=== PATIENT | female | born 1945 | race Caucasian/White ===

== ENCOUNTER 2017-04-25 13:44 | Emergency (ER) | payer OTHER ==
[2017-04-25 13:50] VITALS: BP 118/76; PULSE 63; RESP 18; TEMP 98.8; O2SAT 94
--- NOTE | 2017-04-25 14:45 | EDPHY ---
H & P Stated Complaint: Tremors, anxiety - in withdrawel from clonazapam. Time Seen by Provider: 04/25/17 14:32 HPI/ROS: CHIEF COMPLAINT: Ran out of Klonopin HISTORY OF PRESENT ILLNESS: The patient is a 72-year-old female who comes to the emergency department complaining of Klonopin withdrawal. She takes Klonopin three times daily 0.5 mg for for the last 30 years. She got a new doctor at the [facility] who wrote her prescription for only 30 tablets instead of 90. She ran out 2 days ago but did take 1 tablet yesterday and a half tablet today that she had left over. She has been talking with the pharmacy and the clinic and they are not able to help over the holiday. She comes here complaining of shakes and anxiety. She takes Klonopin for history of panic attacks and PTSD. She is requesting a gap prescription she can follow up with her clinic doctor on Friday. REVIEW OF SYSTEMS: Constitutional: denies: chills, fever, recent illness, recent injury EENTM: denies: blurred vision, double vision, nose congestion Respiratory: denies: cough, shortness of breath Cardiac: denies: chest pain, irregular heart rate, lightheadedness, palpitations Gastrointestinal/Abdominal: denies: abdominal pain, diarrhea, nausea, vomiting, blood streaked stools Genitourinary: denies: dysuria, frequency, hematuria, pain Musculoskeletal: Tremors denies: joint pain, muscle pain Skin: denies: lesions, rash, jaundice, bruising Neurological: denies: headache, numbness, paresthesia, tingling, dizziness, weakness Hematologic/Lymphatic: denies: blood clots, easy bleeding, easy bruising Immunologic/allergic: denies: HIV/AIDS, transplant EXAM: GENERAL: Well-appearing, well-nourished and in no acute distress. HEAD: Atraumatic, normocephalic. EYES: Pupils equal round and reactive to light, extraocular movements intact, sclera anicteric, conjunctiva are normal. ENT: TMs normal, nares patent, oropharynx clear without exudates. Moist mucous membranes. NECK: Normal range of motion, supple without lymphadenopathy or JVD. LUNGS: Breath sounds clear to auscultation bilaterally and equal. No wheezes rales or rhonchi. HEART: Regular rate and rhythm without murmurs, rubs or gallops. ABDOMEN: Soft, nontender, normoactive bowel sounds. No guarding, no rebound. No masses appreciated. BACK: No CVA tenderness, no spinal tenderness, step-offs or deformities EXTREMITIES: Very mild tremors, Normal range of motion, no pitting or edema. No clubbing or cyanosis. NEUROLOGICAL: Cranial nerves II through XII grossly intact. Normal speech, normal gait. 5/5 strength, normal movement in all extremities, normal sensation PSYCH: Anxious SKIN: Warm, dry, normal turgor, no visible rashes or lesions. Source: Patient Exam Limitations: No limitations - Personal History Current Tetanus Diphtheria and Acellular Pertussis (TDAP): Yes - Medical/Surgical History Hx Asthma: No Hx Chronic Respiratory Disease: No Hx Diabetes: No Hx Cardiac Disease: No Hx Renal Disease: No Hx Cirrhosis: No Hx Alcoholism: No Hx HIV/AIDS: No Hx Splenectomy or Spleen Trauma: No Other PMH: ANXIETY. MIGRANES. HIP SURG - APR 2016. PTSD. depression,UN-NAMED AUTO IMMUNE DISORDER - Family History Significant Family History: No pertinent family hx - Social History Smoking Status: Never smoked Alcohol Use: Sober Drug Use: None Constitutional: Initial Vital Signs Temperature (C) 37.1 C 04/25/17 13:45 Heart Rate 63 04/25/17 13:45 Respiratory Rate 18 04/25/17 13:45 Blood Pressure 118/76 04/25/17 13:45 O2 Sat (%) 94 04/25/17 13:45 O2 Delivery Mode Room Air Allergies/Adverse Reactions: oxycodone Allergy (Verified 04/27/16 17:59) codeine/codeine derivatives Allergy (Mild, Uncoded 04/27/16 17:59) GI upset Home Medications: Medication Instructions Recorded clonazePAM [Klonopin (*)] 0.5 mg PO BID #7 tab 04/29/14 Citalopram [CeleXA] 30 mg PO 01/14/15 SUMAtriptan [Imitrex] 25 mg PO Q2H 01/14/15 Nuvigil 04/27/16 IMITREX 04/27/16 clonazePAM [klonoPIN (*)] 1 mg PO ONCE #2 tab 04/27/16 clonazePAM [Klonopin (*)] 0.5 mg PO TID #21 tab 04/25/17 Medical Decision Making ED Course/Re-evaluation: The patient has shown me her prescriptions. She does appear to be in mild withdrawal. I will give her a gap prescription until she can follow up with her doctor on Friday. I believe that this is reasonable. She is very honest. She is grateful and declines any further workup or testing. Differential Diagnosis: Partial list of the Differential diagnosis considered include but were not limited to; benzodiazepine withdrawal, anxiety and although unlikely based on the history and physical exam, I also considered head injury, infection, seizure. I discussed these differential diagnoses and the plan with the patient as well as the usual and expected course. The patient understands that the diagnosis is provisional and that in medicine we are not always correct and that further workup is often warranted. Usual and customary warnings were given. All of the patient's questions were answered. The patient was instructed to return to the emergency department should the symptoms at all worsen or return, otherwise to followup with the physician as we discussed. Departure - Departure Disposition: Home, Routine, Self-Care Clinical Impression: Benzodiazepine withdrawal Qualifiers: Complication of substance-induced condition: uncomplicated Qualified Code(s): F13.230 - Sedative, hypnotic or anxiolytic dependence with withdrawal, uncomplicated Condition: Fair Instructions: Anxiety (ED) Additional Instructions: Follow-up with her clinic doctor on Friday as discussed. Referrals: LU RICHARDSON [Other] - As per Instructions Prescriptions: clonazePAM [Klonopin (*)] 0.5 mg PO TID #21 tab
== END 2017-04-25 14:56 | disposition home or self-care (01) ==
DX: F13.230 Sedative, hypnotic or anxiolytic dependence with withdrawal, uncomplicated (principal)

== ENCOUNTER 2017-05-02 20:02 | Emergency (ER) | payer OTHER ==
[2017-05-02 20:10] VITALS: BP 138/77; PULSE 67; RESP 18; TEMP 98.6; O2SAT 94
--- NOTE | 2017-05-02 20:34 | EDPHY ---
H & P Time Seen by Provider: 05/02/17 20:22 HPI/ROS: CHIEF COMPLAINT: Celexa withdrawal HISTORY OF PRESENT ILLNESS: 72-year-old female with a history of anxiety and depression presents with a chief complaint of Celexa withdrawal. She has ongoing severe anxiety and depression and ran out of her Celexa and Klonopin. She called [facility] several times today as well as the pharmacy and was unable to get her prescriptions filled. She presents quite anxious and demanding. REVIEW OF SYSTEMS: Constitutional: No fever, no chills Eyes: No visual changes ENT: No sore throat Respiratory: No cough, no shortness of breath Cardiac: No chest pain Gastrointestinal: No nausea, no vomiting, no abdominal pain Genitourinary: no dysuria Musculoskeletal: No leg pain or swelling Skin: No rash Neurological: No headache, no weakness Past Medical/Surgical History: Depression Anxiety Smoking Status: Never smoked Physical Exam: General Appearance: Alert, angry and demanding Eyes: Pupils equal and round, no conjunctival pallor ENT, Mouth: Mucous membranes moist Neck: Normal inspection Respiratory: Lungs are clear to auscultation Cardiovascular: Regular rate and rhythm Gastrointestinal: Abdomen is soft and nontender Neurological: A&O, nonfocal, normal gait Skin: Warm and dry Extremities: normal inspection Psychiatric: anxious Constitutional: Initial Vital Signs Temperature (C) 37 C 05/02/17 20:08 Heart Rate 67 05/02/17 20:08 Respiratory Rate 18 05/02/17 20:08 Blood Pressure 138/77 H 05/02/17 20:08 O2 Sat (%) 94 05/02/17 20:08 O2 Delivery Mode Room Air Allergies/Adverse Reactions: oxycodone Allergy (Verified 05/02/17 20:11) codeine/codeine derivatives Allergy (Mild, Uncoded 04/27/16 17:59) GI upset Home Medications: Medication Instructions Recorded Citalopram [CeleXA] 30 mg PO 01/14/15 SUMAtriptan [Imitrex] 25 mg PO Q2H 01/14/15 Nuvigil 04/27/16 clonazePAM [Klonopin (*)] 0.5 mg PO TID #21 tab 04/25/17 Citalopram [CeleXA 20 MG] 30 mg PO DAILY #30 tab 05/02/17 clonAZEPAM [Klonopin] 0.5 mg PO BID PRN #20 tab.rapdis 05/02/17 Medical Decision Making ED Course/Re-evaluation: Prescriptions refilled for this patient. She has severe anxiety and depression , does not meet criteria for mental health hold. No suicidal or homicidal ideation. Departure - Departure Referrals: Patient,NotPresent [Primary Care Provider] - As per Instructions Prescriptions: Citalopram [CeleXA 20 MG] 30 mg PO DAILY #30 tab clonAZEPAM [Klonopin] 0.5 mg PO BID PRN #20 tab.rapdis PRN Reason: Anxiety
== END 2017-05-02 21:08 | disposition home or self-care (01) ==
LOC: EDUNIT#
DX: F41.9 Anxiety disorder, unspecified (principal); Z76.0 Encounter for issue of repeat prescription

== ENCOUNTER 2017-06-17 13:14 | Emergency (ER) | payer OTHER ==
[2017-06-17 13:54] VITALS: BP 101/74; PULSE 95; RESP 16; TEMP 98.2; O2SAT 95
== END 2017-06-17 15:04 | disposition left against medical advice (07) ==
DX: Z53.21 Procedure and treatment not carried out due to patient leaving prior to being seen by health care provider (principal)

== ENCOUNTER → 2017-08-14 | Outpatient (CLI) | payer OTHER | LOC: FIMAGING 15:29 | DX: Z12.31 Encounter for screening mammogram for malignant neoplasm of breast (principal) ==

== ENCOUNTER 2017-09-10 22:03 | Emergency (ER) | payer OTHER ==
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
[2017-09-10] MEDS ORDERED: clonazePAM 0.5 MG TAB PO ONE (22:49)
[2017-09-10 22:57] VITALS: BP 132/77
== END 2017-09-10 22:56 | disposition home or self-care (01) ==
DX: F41.1 Generalized anxiety disorder (principal)

== ENCOUNTER 2017-09-18 15:16 | Inpatient (IN) | payer OTHER, MEDICAID ==
--- NOTE | 2017-09-18 15:50 | EDPHY ---
H & P Stated Complaint: [facility] fall - Personal History Current Tetanus Diphtheria and Acellular Pertussis (TDAP): Unsure - Medical/Surgical History Hx Asthma: No Hx Chronic Respiratory Disease: No Hx Diabetes: No Hx Cardiac Disease: No Hx Renal Disease: No Hx Cirrhosis: No Hx Alcoholism: No Hx HIV/AIDS: No Hx Splenectomy or Spleen Trauma: No Other PMH: ANXIETY. MIGRANES. HIP SURG - APR 2016. PTSD. depression,UN-NAMED AUTO IMMUNE DISORDER, tremor - Social History Smoking Status: Never smoked Time Seen by Provider: 09/18/17 15:35 HPI/ROS: CHIEF COMPLAINT: "My arm hurts" HISTORY OF PRESENT ILLNESS: 72-year-old female no anticoagulant use erect by ambulance complaining of left humerus and shoulder pain. Describes being in her kitchen, having baseline of imbalance issues, twisted and tripped over her dog landing on her left shoulder. Patient relates that since being tapered down on her benzodiazepines she has been experiencing increasing tremor. No seizure. No head injury. No prolonged periods of mobility. No chest pain. No dyspnea. No abdominal pain. No nausea or vomiting. No antecedent symptoms.. No midline C-spine pain. No peripheral paresthesia, weakness, numbness. No alcohol or drug use. REVIEW OF SYSTEMS: A ten point review of systems was performed and is negative with the exception of the items mentioned in the HPI PAST MEDICAL/SURGICAL HISTORY: Anxiety disorder. Benzodiazepine dependence. no relevant medical/surgical history SOCIAL HISTORY: denies alcohol use at time of incident PHYSICAL EXAM 1) GENERAL: Well-developed, well-nourished, alert and oriented. Answering questions appropriately. 2) HEAD: Normocephalic, atraumatic 3) HEENT: Pupils equal, round, reactive to light bilaterally. Negative Horners. Nasopharynx, oropharynx, clear. No deformity or angulation of nose. No septal hematoma. No rhinorrhea. No oral trauma. Ears bilaterally with normal tympanic membranes. No hemotympanum. No fluid or blood in the external auditory canal. No raccoon eyes. No Craft sign. Teeth are normally aligned with no gross malocclusion, TMJ bilaterally nontender, facial bones nontender including the zygomatic arch, maxilla mandible. 4) NECK: No cervical collar is on. Posterior cervical spine is nontender, no stepoff, no effusion. Full range of motion which does not elicit any midline cervical spine pain, no posterior midline tenderness, no step-off. 5) LUNGS: Clear to auscultation bilaterally, no wheezes, no rhonchi, no retractions. No obvious signs of trauma. No chest wall pain. No flaring, no grunting. Moving symmetrically. No crepitus. 6) HEART: Regular rate and rhythm, 7) ABDOMEN: No guarding, no rebound, no focal tenderness, no peritoneal signs, no signs of trauma, no ecchymosis 8) MUSCULOSKELETAL: Left upper extremity: Sling present, tender to palpation mid humerus and shoulder. No visible or palpable abnormality beyond pain. Intact skin with no tenting, no puncture wound no bleeding. Soft compartments. Distal neurovascular status is in normal. Brisk capillary refill and pulses. Radial ulnar median nerve function intact distally wound. Otherwise, Moving all extremities, no focal areas of tenderness, no obvious trauma. 9) BACK: No midline vertebral tenderness, no fluctuance, no step-off, no obvious trauma, no visual or palpable abnormality. 10) SKIN: No laceration. No abrasion DIFFERENTIAL DIAGNOSIS: In no particular order including but not limited to fracture, dislocation, sprain, strain, compartment syndrome (Misbah,Magalie Sydnie) Constitutional: Initial Vital Signs Temperature (C) 36.7 C 09/18/17 15:29 Heart Rate 57 L 09/18/17 15:29 Respiratory Rate 16 09/18/17 15:29 Blood Pressure 118/95 H 09/18/17 15:29 O2 Sat (%) 95 09/18/17 15:29 O2 Delivery Mode Nasal Cannula O2 (L/minute) 2 Allergies/Adverse Reactions: oxycodone Allergy (Verified 06/17/17 13:48) codeine/codeine derivatives Allergy (Mild, Uncoded 06/17/17 13:48) GI upset Home Medications: Medication Instructions Recorded SUMAtriptan [Imitrex] 25 mg PO Q2H 01/14/15 clonazePAM [Klonopin (*)] 0.5 mg PO TID #21 tab 04/25/17 clonazePAM [Klonopin (*)] 0.5 mg PO BID PRN #10 tab 09/10/17 Medical Decision Making - Diagnostics Imaging Results: Imaging Impressions Humerus X-Ray 09/18/17 15:49 Impression: 1. Oblique fracture proximal to midshaft left humerus without angulation or displacement with additional nondisplaced fracture line extending into the humeral neck region and questionable fracture fragment at the greater tuberosity. Shoulder X-Ray 09/18/17 15:50 Impression: 1. Oblique fracture proximal to midshaft left humerus without angulation or displacement with additional nondisplaced fracture line extending into the humeral neck region and questionable fracture fragment at the greater tuberosity. Images reviewed myself (Magalie Crawley) Procedures: Procedure: Splint a Pichardo splint was applied by ER renal technician for the patient's mid humerus fracture. After application of the splint I returned and re-examined the patient. The splint was adequately immobilizing the joint and distal to the splint the patient's circulation and sensation were intact. Patient shows no signs of compartment syndrome. Was given orthopedic precautions. (Magalie Crawley ) ED Course/Re-evaluation: 3:49 p.m.: I have evaluated the patient. She is tender to palpation proximal humerus and shoulder. I recommended x-rays. I have offered analgesia which she declines. Patient describes a mechanical incident, does not describe symptoms consistent with syncope or seizure. 4:46 p.m. Patient was re-evaluated with serial examinations was recently at this time. She has been placed in a Pichardo brace/splint. She has been given orthopedic follow-up information. She is neurovascularly intact. She has no evidence of compartment syndrome. Care of patient under supervision of secondary supervising physician Dr Luna . Patient informs me that she does not feel safe being discharged noting that she lives by herself, has a baseline of being on steady. States that she will not be able to perform activities of daily living. Plan will therefore be admission to hospitalist with orthopedic consultation for PT, OT, pain control, likely transfer to rehabilitation facility. 5:14 p.m.: Consultation with Dr. Sarwat Mason hospitalist will admit patient primarily. Awaiting call from on-call orthopedics. (Magalie Crawley) 5:35 p.m. I discussed the case with Dr. Smalls who will consult. (Dagoberto Luna) - Data Points Medications Given: Discontinued Medications Morphine Sulfate (Morphine) 4 mg IVP EDNOW ONE Stop: 09/18/17 16:16 Last Admin: 09/18/17 16:17 Dose: 4 mg Ondansetron HCl (Zofran) 4 mg IVP EDNOW ONE Stop: 09/18/17 16:26 Last Admin: 09/18/17 16:31 Dose: 4 mg Departure - Departure Disposition: [facility] Inpatient Acute Clinical Impression: Unable to care for self Left humeral fracture Qualifiers: Encounter type: initial encounter Humerus Location: shaft Fracture type: closed Fracture morphology: spiral Fracture alignment: nondisplaced Qualified Code(s): S42.345A - Nondisplaced spiral fracture of shaft of humerus, left arm, initial encounter for closed fracture Condition: Good
[2017-09-18] MEDS ORDERED: HYDROmorphONE/DILAUDID 2 MG/ML INJ ONE (16:11)
[2017-09-18] MEDS ORDERED: ONDANSETRON 4 MG/2 ML VIAL IVP ONE (16:25)
[2017-09-18] MEDS ORDERED: ACETAMINOPHEN 500 MG TAB PO SCH (17:30)
[2017-09-18] MEDS ORDERED: ONDANSETRON 4 MG/2 ML VIAL IVP PRN (17:34)
[2017-09-18] MEDS ORDERED: ACETAMINOPHEN 325 MG TAB PO PRN (17:34)
[2017-09-18] MEDS ORDERED: ONDANSETRON DISINTEGRATING 4 MG TAB PO PRN (17:34)
[2017-09-18] MEDS ORDERED: DIAZEPAM 2 MG TAB PO PRN (17:37)
[2017-09-18 17:58] LABS: PLATELET COUNT 288 10^3/uL (150-400)
--- NOTE | 2017-09-18 18:23 | GHP ---
[f rep st] HISTORY AND PHYSICAL DATE OF ADMISSION: 09/18/2017 HISTORY OF PRESENT ILLNESS: Ms Wolfe is a 72-year-old female with left leg tremor and repeat repeate d history of falls, who fell in her kitchen today. She did not hit her head. She did lose conscious ness. She denies antecedent chest pain or shortness of breath. She sustained pain to her left arm. Her biggest complaint is being tapered down on her benzodiazepines and experiencing increasing tremo r. She is uncertain as to why they were discontinued. She does denies having had difficulty with us ing these medications. REVIEW OF SYSTEMS: A complete 10-point review of systems was conducted and negative except as noted in the HPI. PAST MEDICAL HISTORY: Anxiety disorder, falls, benzodiazepine use, and hip replacement. SOCIAL HISTORY: Denies alcohol or tobacco. Lifelong nonsmoker. Used to work at [employer] in [employer]. FAMILY HISTORY: Father of prostate cancer. PHYSICAL EXAMINATION: GENERAL: No acute distress. HEENT: Sclerae anicteric. Oropharynx clear. Mu cous membranes moist. NECK: Supple without lymphadenopathy or JVD. LUNGS: Clear to auscultation b ilaterally. HEART: S1, S2. ABDOMEN: Soft, nontender, nondistended. EXTREMITIES: Lower without ed ari. Her left hand is neurovascularly intact. NEUROLOGIC: Nonfocal. SKIN: Without rash. VITAL SI GNS: Temp 36.7, blood pressure 118/95 pulse , breathing 16 times a minute, 95% on 2 L. DIAGNOSTICS: Labs are pending at this time. X-rays: Shoulder with humerus interpreted by me shows a midshaft humerus fracture. I have discussed the case with Dr. Sydnie Crawley PA-C, in the emergency department. ASSESSMENT/PLAN: This is a 72-year-old female with balance issues, here with fall and a humerus frac ture. 1. Humerus fracture: These are typically nonoperative, although the midshaft ones sometimes are. S he will be seen by Orthopedics. 2. Preoperative cardiac evaluation: The patient is a relatively young female with no contraindicati ons to proceed to the operating room as is.. 3. Pain: The patient does well on hydrocodone/Tylenol as I have ordered. I have also ordered a lit tle bit of Valium for muscle spasms. 4. Klonopin use: I have ordered 0.5 b.i.d. for her anxiety disorder and tremor. 5. Prophylaxis: Low molecular weight heparin. DISPOSITION: Inpatient. PT/OT. /[id number]/MODL
[2017-09-18] MEDS: HYDROCODONE/APAP 10/325 TAB PO PRN (18:27)
--- NOTE | 2017-09-18 18:50 | PDMN ---
Medical Necessity Medical necessity: Pt meets IP criteria per MD; est los >2 mn for eval/tx of L humerus fx; admit for further monitoring, Ortho consult, med management & therapies; hx anxiety, L leg tremor & falls; per H&P & order 09/18/17
[2017-09-18] MEDS: clonazePAM 0.5 MG TAB PO SCH (20:55)
[2017-09-18] MEDS ORDERED: DIAZEPAM 2 MG TAB PO ONE (21:00)
[2017-09-18] MEDS ORDERED: CYCLOBENZAPRINE 10 MG TAB PO PRN (23:01)
[2017-09-18] MEDS ORDERED: KETOROLAC 15 MG/1 ML SDV IVP PRN (23:04)
[2017-09-18] MEDS: MELATONIN 3 MG TAB PO SCH (23:35)
[2017-09-19] MEDS: ENOXAPARIN 40 MG/0.4 ML SYR SC SCH (07:46)
[2017-09-19] MEDS: clonazePAM 0.5 MG TAB PO SCH ×2 (07:47→21:27)
[2017-09-19] MEDS: HYDROCODONE/APAP 10/325 TAB PO PRN ×3 (07:47→21:26)
[2017-09-19] MEDS ORDERED: MAGNESIUM HYDROXIDE 30 ML UDCUP PO PRN ×2 (09:00→09:28)
[2017-09-19] MEDS ORDERED: BISACODYL 10 MG SUPP PR PRN ×2 (09:00→09:28)
[2017-09-19] MEDS ORDERED: clonazePAM 0.5 MG TAB PO SCH (09:00)
[2017-09-19] MEDS ORDERED: POLYETHYLENE GLYCOL 3350 17 GM PKT PO PRN ×2 (09:00→09:28)
[2017-09-19] MEDS ORDERED: LACTULOSE 20 GM/30 ML UDCUP PO PRN ×2 (09:00→09:28)
[2017-09-19] MEDS: ASPIRIN EC 81 MG TAB PO SCH (13:47)
[2017-09-19] MEDS: CHOLECALCIFEROL VIT D3 1,000 UNITS TAB PO SCH (13:48)
[2017-09-19] MEDS: CYANO/VITAMIN B12 1000 MCG TAB PO SCH (13:48)
[2017-09-19] MEDS: MAGNESIUM OXIDE 400 MG TAB PO SCH (13:48)
[2017-09-19] MEDS: SENNOSIDES/DOCUSATE SODIUM TAB PO SCH ×2 (13:50→23:08)
[2017-09-19] MEDS: SUMAtriptan 50 MG TAB PO PRN ×3 (13:58→22:32)
--- NOTE | 2017-09-19 13:59 | HOSPPROG ---
Hospitalist Progress Note Assessment/Plan: 72-year-old female presents emergency room after fall. Complains of left arm pain. 1st encounter, chart reviewed. Patient discussed with Dr. Sarwat Mason. # left humeral fracture In sling Awaiting Dr. Smalls consult # pain Controlled # anxiety disorder with tremor Continue previously prescribed Klonopin # disposition Patient requires long-term facility She lives independently Very little support Discussed with case management an RN Provide supportive care Reviewed with PT and OT Subjective: Up in the chair. Anxious about situation. No pain at this time. Objective: Vital Signs Temp Pulse Resp BP Pulse Ox 36.7 C 63 18 104/62 90 L 09/19/17 11:16 09/19/17 11:16 09/19/17 11:16 09/19/17 11:16 09/19/17 11:16 Laboratory Results 09/18/17 17:50 09/18/17 17:50 - Physical Exam Constitutional: appears nourished, chronically ill appearing, uncomfortable Eyes: PERRL, anicteric sclera, EOMI Ears, Nose, Mouth, Throat: moist mucous membranes, hearing normal, ears appear normal Cardiovascular: regular rate and rhythym, No JVD, No edema Respiratory: no respiratory distress, no rales or rhonchi, clear to auscultation Gastrointestinal: normoactive bowel sounds, No tenderness, No ascites Skin: warm, normal color, No mottled Musculoskeletal: joint tenderness, pain with ROM, generalized weakness Neurologic: AAOx3 Psychiatric: not encephalopathic, thought process linear, anxious, poor judgement, poor memory ICD10 Worksheet Patient Problems: Problems Problem Status Onset Left humeral fracture Acute
--- NOTE | 2017-09-19 14:21 | ASMTCMCOM ---
CM Note CM Note Notes: Patient admitted after she sustained a fall and humerus fracture. While these are normally nonoperative, orthopaedics has been consulted. Patient lives independently at [facility]. I went to speak to her about discharge planning (PT has recommended SNF upon first eval), and she had no interest in discussing anything other than her lack of being able to do anything without her phone (she says she lost it 3 weeks ago) and her computer (a desktop at her residence). I offered to help her locate the phone numbers she was anxious about not having, so she made me a list. I used [employer] to find the numbers she requested. I tried to broach the subject of the extra assistance she will likely need upon discharge but she adamantly refused to talk about it until seen by orthopaedics. Case Management will follow. Date Signed: 09/19/2017 02:20 PM Electronically Signed By:Savita Panye RN
--- NOTE | 2017-09-19 15:01 | GDS ---
[f rep st] DISCHARGE SUMMARY CHIEF COMPLAINT: Left arm pain. HISTORY OF PRESENT ILLNESS: Ms. Wolfe is a 72-year-old female who fell at home yesterday, [facility], diagnosed with a comminuted humeral shaft fracture. I was asked to see the patient fo r further evaluation. PHYSICAL EXAMINATION: EXTREMITIES: The patient is in a humeral brace as well as wearing a sling. She appears to be comfortable when she is sitting in her chair. She is neurologically intact in the axi llary, musculocutaneous, radial, median, and ulnar nerves. She has no pain to supination, pronation or flexion and extension through the elbow. Motion of the shoulder was not tested secondary to the mo re recent fracture that she had. X-RAY: Exam reveals a comminuted shaft fracture of the humerus with relatively no displacement noted along the shaft. ASSESSMENT AND PLAN: Patient is status post left humeral shaft fracture. She is to remain within e brace for approximately 6 weeks. She will need x-rays approximately every 2 weeks in order to foll ow progress of healing of the humeral shaft. She was encouraged to increase her calcium intake to at least 1500 mg of calcium per day as well as taking vitamin D and getting sunshine in order to proces s the calcium. She is to follow up in the office in 2 weeks in order to further evaluate the fracture . /[id number]/MODL
[2017-09-19] MEDS: CEPACOL LOZENGE PO PRN ×2 (17:42→21:26)
[2017-09-19] MEDS ORDERED: SENNOSIDES/DOCUSATE SODIUM TAB PO SCH (21:00)
[2017-09-19] MEDS: MELATONIN 3 MG TAB PO SCH (21:27)
[2017-09-20] MEDS: HYDROCODONE/APAP 10/325 TAB PO PRN ×2 (05:21→13:56)
[2017-09-20] MEDS: ENOXAPARIN 40 MG/0.4 ML SYR SC SCH (10:12)
[2017-09-20] MEDS: CHOLECALCIFEROL VIT D3 1,000 UNITS TAB PO SCH (10:13)
[2017-09-20] MEDS: ASPIRIN EC 81 MG TAB PO SCH (10:13)
[2017-09-20] MEDS: clonazePAM 0.5 MG TAB PO SCH ×2 (10:13→20:58)
[2017-09-20] MEDS: MAGNESIUM OXIDE 400 MG TAB PO SCH (10:13)
[2017-09-20] MEDS: CYANO/VITAMIN B12 1000 MCG TAB PO SCH (10:13)
[2017-09-20] MEDS: SENNOSIDES/DOCUSATE SODIUM TAB PO SCH ×2 (11:11→21:02)
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
[2017-09-20] MEDS: SUMAtriptan 50 MG TAB PO PRN ×2 (12:40→15:00)
--- NOTE | 2017-09-20 13:32 | ASMTCMCOM ---
CM Note CM Note Notes: Pt here w/humerus fx, no surgery at this time. PT recommending SNF. Met w/pt to discuss dc plan; conversation was difficult as pt was tired and feeling very frustrated about the tremor in her leg that she still has and she also stated to me that she was depressed- shared this info with Hospitalist, Astrid Shepherd. She will order neuro consult to address tremor. Pt was open to SNF, does not want to go to [facility]- hx of bad experience there. We discussed other options. She liked the idea of rehab only facilities. I asked her if she had any friends or family to help her choose facility and she said she did not. She was open to [facility]. Referrals sent to both facilities. CM will follow. Date Signed: 09/20/2017 01:32 PM Electronically Signed By:Jacquelyn Galan RN
[2017-09-20] MEDS: CAPSAICIN 0.025% CREAM TP SCH (13:58)
--- NOTE | 2017-09-20 14:35 | GCON ---
[f rep st] CONSULTATION NEUROLOGY CONSULT REFERRING PHYSICIAN: Astrid Shepherd NP CHIEF COMPLAINT: Tremor. 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 She has been maintained on 1.5 mg of clonazepam per report by the patient. She has been recently tapered down by her physician outreach assistant at [facility] 3 months ago to 1.0 Klonopin due to concerns about side effects of cognitive impairment and decreased balance. The patient reports that , with the decrease in clonazepam, she has had an increased tremor which has led to gait problems and falls. She fell and broke her humerus leading to this hospitalization. Not clear what led to the fall from looking at the records. The patient reports it is due to her foot tremor. No seizures or autonomic dysfunction while in the hospital to suggest benzodiazepine withdrawal. She has been on a stable dose of CZP 1.0 mg for ~ 30 days per patient. PAST MEDICAL HISTORY: See Dr. Mason's History and Physical. SOCIAL HISTORY: See Dr. Mason's History and Physical. MEDICATIONS: See Dr. Mason's History and Physical. PHYSICAL EXAM: VITAL SIGNS: Blood pressure 116/78, temperature 36.7, heart rate 72. GENERAL: Patient is very pleasant, in no acute distress. NEURO: Higher mental function, she is awake and alert. Cranial nerve exam, she has no head tremor on exam. Motor exam, her left arm is in a cast. With extension of the right arm, there is no tremor. In her lower extremity, there is no tremor. In her left lower extremity, when I had her elevate her left leg, there was some irregular, arrhythmic movements, suggestive of a functional tremor. IMPRESSION: Tremor, not otherwise specified. PLAN: Discussed in detail with the patient and hospitalist team. The plan will be discharging the patient to a long term facility or inpatient rehabilitation, whatever is indicated. She will be on a total dose of clonazepam 1.0 mg with close followup with her primary care provider for renewal of this prescription. She will not follow up with our neurology practice. The patient understands this. She does have an outpatient movement disorder specialty consultation on September 29, 2017, with the [facility]. She will keep that appointment. No further recommendations. We will sign off and follow up as needed. Please do not hesitate to call if there are any questions or changes in neurologic status with this very pleasant patient. Fifty total minutes floor time and reviewing inpatient records, direct counseling with the patient, and coordination of care. /[id number]/MODL MTDD
[2017-09-20] MEDS ORDERED: SUMAtriptan 50 MG TAB PO PRN (15:30)
[2017-09-20] MEDS: HYDROCODONE/APAP 5/325 TAB PO PRN ×2 (15:30→20:58)
[2017-09-21] MEDS: MELATONIN 3 MG TAB PO SCH (00:47)
[2017-09-21] MEDS: CAPSAICIN 0.025% CREAM TP SCH ×2 (00:48→09:48)
[2017-09-21] MEDS ORDERED: CALCIUM CARBONATE 500 MG CHEWABLE TAB PO PRN (04:31)
[2017-09-21] MEDS: HYDROCODONE/APAP 5/325 TAB PO PRN ×2 (07:54→11:37)
[2017-09-21] MEDS: clonazePAM 0.5 MG TAB PO SCH (07:54)
[2017-09-21 08:04] VITALS: BP 117/67
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
--- NOTE | 2017-09-21 09:25 | PDIAF ---
- Diagnosis Diagnosis: left humerus fracture, tremors Code Status: Full Code - Medication Management Discharge Medications: Medications to Continue on Transfer Aspirin EC [Aspirin EC 81 mg (*)] 243 mg PO DAILY 09/18/17 [Last Taken 09/18/17] Cholecalciferol Vit D3 [Vitamin D3 (*)] 1,000 units PO DAILY 09/18/17 [Last Taken Unknown] Cyanocobalamin [Vitamin B12 (*)] 1,000 mcg PO DAILY 09/18/17 [Last Taken Unknown ] Magnesium Oxide [Magnesium Oxide 400 mg (*)] 400 mg PO DAILY 09/18/17 [Last Taken Unknown] SUMAtriptan [Imitrex 50 MG (*)] 50 mg PO PRN PRN 09/18/17 [Last Taken Unknown] Acetaminophen [Tylenol 325mg (*)] 650 mg PO Q4HRS PRN tab 09/21/17 [Last Taken Unknown] Benzocaine/Menthol 15/4 [Cepacol Lozenge] 1 ea PO Q1 PRN lozenge 09/21/17 [ Last Taken Unknown] Calcium Carbonate [Tums 500MG (*)] 500 mg PO TID PRN tab.chew 09/21/17 [Last Taken Unknown] Capsaicin 0.025% 1 hardy TP TID cream 09/21/17 [Last Taken Unknown] Cyclobenzaprine [Flexeril 10 MG (*)] 5 mg PO TID PRN tab 09/21/17 [Last Taken Unknown] Hydrocodone/APAP 5/325 [[place] 5/325 (*)] 1 - 2 tab PO Q4HRS PRN tab 09/21/17 [ Last Taken Unknown] Melatonin [Melatonin 3 MG (*)] 6 mg PO HS tab 09/21/17 [Last Taken Unknown] Polyethylene Glycol 3350 [Miralax 17 gm (*)] 17 gm PO DAILY PRN pkt 09/21/17 [ Last Taken Unknown] Sennosides/Docusate Sodium [Senokot-S] 1 - 2 tab PO BID tab 09/21/17 [Last Taken Unknown] clonazePAM [Klonopin (*)] 0.5 mg PO BID tab 09/21/17 [Last Taken Unknown] Discharge Medications: Refer to the Discharge Home Medication list for PRN reason. PICC Care - Routine: N/A - Orders Services needed: Physical Therapy, Occupational Therapy Oxygen: 1-2 liters prn Diet Recommendation: no restrictions on diet Diet Texture: Regular Texture Diet Additional Instructions: repeat xrays in 2 weeks for follow up wear brace x 6 weeks make an appointment to see Dr Smalls - Labs/Radiology Imaging Orders: left humerus, left shoulder xray in 2 weeks - Follow Up Care Current Providers and Referrals: NONE *PRIMARY CARE P,. [Primary Care Provider] - As per Instructions Saba Smalls MD [Medical Doctor] -
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
[2017-09-21] MEDS: CHOLECALCIFEROL VIT D3 1,000 UNITS TAB PO SCH (09:47)
[2017-09-21] MEDS: SENNOSIDES/DOCUSATE SODIUM TAB PO SCH (09:47)
[2017-09-21] MEDS: ASPIRIN EC 81 MG TAB PO SCH (09:47)
[2017-09-21] MEDS: CYANO/VITAMIN B12 1000 MCG TAB PO SCH (09:48)
[2017-09-21] MEDS: MAGNESIUM OXIDE 400 MG TAB PO SCH (09:48)
[2017-09-21] MEDS: ENOXAPARIN 40 MG/0.4 ML SYR SC SCH (09:48)
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
== END 2017-09-21 11:45 | DRG 563 ==
LOC: EDUNIT# → OBSVTOIN 17:12 → F3N 18:08
PROVIDERS: ADMIT Internal Medicine; ATTEND Internal Medicine
DX: S42.302A Unspecified fracture of shaft of humerus, left arm, initial encounter for closed fracture (principal); R26.9 Unspecified abnormalities of gait and mobility; W01.0XXA Fall on same level from slipping, tripping and stumbling without subsequent striking against object, initial encounter; Y92.010 Kitchen of single-family (private) house as the place of occurrence of the external cause; Z91.81 History of falling; R25.1 Tremor, unspecified; F41.9 Anxiety disorder, unspecified; F43.10 Post-traumatic stress disorder, unspecified
CPT/HCPCS: 96374; 97161-GP; 97165-GO; 97530-GP; 97535-GO; A4565; G8978-GP-CJ; G8979-GP-CI; G8987-GO-CJ; G8988-GO-CI; J1170; J1650; J1885; J2270; J2405

== ENCOUNTER 2017-09-21 21:53 | Inpatient (IN) | payer OTHER, MEDICAID ==
--- NOTE | 2017-09-21 21:57 | EDPHY ---
H & P Time Seen by Provider: 09/21/17 21:57 HPI/ROS: HPI CHIEF COMPLAINT: Need for medication, unhappy at rehab facility HISTORY OF PRESENT ILLNESS: This patient is 72-year-old female she was recently here in the hospital left humerus fracture from gait instability and a fall, she presents emergency room from [facility] rehabilitation after she was discharged around noon today. She became frustrated and rather upset that she did not get any of her normal medications when she was requesting them at 8 o'clock this evening. For whatever reason they were unable to give her her medications she became upset anxious frustrated and decided come back to the emergency room. She is requesting be readmitted back to the hospital she does not want to go back to [facility] rehab. Past Medical History: Anxiety, PTSD, recent left humerus fracture requiring hospitalization, gait instability Past Surgical History: No recent surgery Social History: Lives at [facility] however currently at [facility] Family History: Noncontributory ROS REVIEW OF SYSTEMS: A comprehensive 10 point review of systems is otherwise negative aside from elements mentioned in the history of present illness. Exam Constitutional appears well nontoxic no acute distress triage nursing summary reviewed, vital signs reviewed, awake/alert. Eyes normal conjunctivae and sclera, EOMI, PERRLA. HENT normal inspection, atraumatic, moist mucus membranes, no epistaxis, neck supple/ no meningismus, no raccoon eyes. Respiratory clear to auscultation bilaterally, normal breath sounds, no respiratory distress, no wheezing. Cardiovascular rate normal, regular rhythm, no murmur, no edema, distal pulses normal. Gastrointestinal soft, non-tender, no rebound, no guarding, normal bowel sounds, no distension, no pulsatile mass. Genitourinary no CVA tenderness. Musculoskeletal left upper extremity: This is in a sling, neurovascular intact otherwise, no midline vertebral tenderness, full range of motion, no calf swelling, no tenderness of extremities, no meningismus, good pulses, neurovascularly intact. Skin pink, warm, & dry, no rash, skin atraumatic. Neurologic awake, alert and oriented x 3, AAOx3, moves all 4 extremities equally, motor intact, sensory intact, CN II-XII intact, normal cerebellar, normal vision, normal speech. Psychiatric normal mood/affect. Heme/Lymph/Immune no lymphadenopathy. Differential Diagnosis: Includes but is not limited to in a particular order acute anxiety, unhappy with current social situation, need for medication including her anxiety medication pain medicine. Medical Decision Making: Plan for this patient I will give her her medications she normally takes. I have ordered her Benadryl for some itching after she had a TB test placed in her right arm, additionally will give her dose of Klonopin, additionally will give her dose of [place] for pain control. I will readmit her back to the hospital as she is refusing to be discharged back to her current rehab facility. Re-evaluation: Patient refusing to go back to SNF. Wants to be re-admitted. Not Safe for d/c home. Recent fall, recent Humerus Fracture. Plan will be for admission. Source: Patient, EMS - Medical/Surgical History Hx Asthma: No Hx Chronic Respiratory Disease: No Hx Diabetes: No Hx Cardiac Disease: No Hx Renal Disease: No Hx Cirrhosis: No Hx Alcoholism: No Hx HIV/AIDS: No Hx Splenectomy or Spleen Trauma: No Other PMH: ANXIETY. MIGRANES. HIP SURG - APR 2016. PTSD. depression,UN-NAMED AUTO IMMUNE DISORDER, tremor - Social History Smoking Status: Never smoked Constitutional: Initial Vital Signs Temperature (C) 37.3 C 09/21/17 22:02 Heart Rate 86 09/21/17 22:02 Respiratory Rate 18 09/21/17 22:02 Blood Pressure 131/81 H 09/21/17 22:02 O2 Sat (%) 91 L 09/21/17 22:02 O2 Delivery Mode Room Air Allergies/Adverse Reactions: oxycodone Allergy (Verified 06/17/17 13:48) codeine/codeine derivatives Allergy (Mild, Uncoded 06/17/17 13:48) GI upset Home Medications: Medication Instructions Recorded Aspirin EC [Aspirin EC 81 mg (*)] 243 mg PO DAILY 09/18/17 Cholecalciferol Vit D3 [Vitamin D3 1,000 units PO DAILY 09/18/17 (*)] Cyanocobalamin [Vitamin B12 (*)] 1,000 mcg PO DAILY 09/18/17 Magnesium Oxide [Magnesium Oxide 400 mg PO DAILY 09/18/17 400 mg (*)] SUMAtriptan [Imitrex 50 MG (*)] 50 mg PO PRN PRN 09/18/17 Benzocaine/Menthol 15/4 [Cepacol 1 ea PO Q1 PRN lozenge 09/21/17 Lozenge] Calcium Carbonate [Tums 500MG (*)] 500 mg PO TID PRN tab.chew 09/21/17 Capsaicin 0.025% 1 hardy TP TID cream 09/21/17 Cyclobenzaprine [Flexeril 10 MG 5 mg PO TID PRN tab 09/21/17 (*)] Hydrocodone/APAP 5/325 [[place] 1 - 2 tab PO Q4HRS PRN tab 09/21/17 5/325 (*)] Polyethylene Glycol 3350 [Miralax 17 gm PO DAILY PRN pkt 09/21/17 17 gm (*)] clonazePAM [Klonopin (*)] 0.5 mg PO BID tab 09/21/17 Medical Decision Making - Data Points Medications Given: Hydrocodone Bitart/Acetaminophen ([place] 5/325) 1 - 2 tab PO Q4HRS PRN PRN Reason: Pain, Moderate Able to Take PO Stop: 10/01/17 22:59 Last Admin: 09/22/17 22:21 Dose: 1 tab Aspirin Buffered (Aspirin Ec) 243 mg PO DAILY PRABHAKAR Stop: 03/21/18 08:59 Last Admin: 09/22/17 10:07 Dose: 243 mg Capsaicin (Capsaicin 0.025%) 1 hardy TP TID PRABHAKAR Stop: 03/21/18 08:59 Last Admin: 09/22/17 21:17 Dose: Not Given Cholecalciferol (Vitamin D) 1,000 units PO DAILY PRABHAKAR Stop: 03/21/18 08:59 Last Admin: 09/22/17 10:08 Dose: 1,000 units Clonazepam (Klonopin) 0.5 mg PO BID PRABHAKAR Stop: 03/21/18 08:59 Last Admin: 09/22/17 21:12 Dose: 0.5 mg Enoxaparin Sodium (Lovenox) 40 mg SC DAILY PRABHAKAR Stop: 03/21/18 08:59 Last Admin: 09/22/17 10:23 Dose: 40 mg Magnesium Oxide (Magnesium Oxide) 400 mg PO DAILY PRABHAKAR Stop: 03/21/18 08:59 Last Admin: 09/22/17 10:08 Dose: 400 mg Methocarbamol (Robaxin) 750 mg PO TID PRN PRN Reason: spasms Stop: 03/21/18 21:59 Last Admin: 09/22/17 17:43 Dose: 750 mg Senna/Docusate Sodium (Senokot-S) 1 - 2 tab PO BID PRABHAKAR PRN Reason: Protocol Stop: 03/21/18 20:59 Last Admin: 09/22/17 21:13 Dose: 2 tab Vitamin B Complex (Vitamin B12) 1,000 mcg PO DAILY PRABHAKAR Stop: 03/21/18 08:59 Last Admin: 09/22/17 10:08 Dose: 1,000 mcg Discontinued Medications Hydrocodone Bitart/Acetaminophen ([place] 5/325) 1 tab PO EDNOW ONE Stop: 09/21/17 22:06 Last Admin: 09/21/17 22:38 Dose: 1 tab Clonazepam (Klonopin) 1 mg PO EDNOW ONE Stop: 09/21/17 22:06 Last Admin: 09/21/17 22:39 Dose: 0.5 mg Diphenhydramine HCl (Benadryl) 25 mg PO EDNOW ONE Stop: 09/21/17 22:06 Last Admin: 09/21/17 22:38 Dose: 25 mg Sumatriptan Succinate (Imitrex) 50 mg PO ONCE ONE Stop: 09/21/17 22:44 Last Admin: 09/21/17 23:04 Dose: 50 mg Throat Lozenges (Cepacol Lozenge) 1 ea PO Q1HR PRN PRN Reason: Sore Throat Stop: 03/21/18 04:35 Last Admin: 09/22/17 04:44 Dose: 1 ea Departure - Departure Disposition: [facility] Clinical Impression: Pain in humerus Condition: Good
[2017-09-21] MEDS ORDERED: diphenhydrAMINE 25 MG CAP PO ONE (22:05)
[2017-09-21] MEDS ORDERED: HYDROCODONE/APAP 5/325 TAB PO ONE (22:05)
[2017-09-21] MEDS ORDERED: clonazePAM 1 MG TAB PO ONE (22:05)
[2017-09-21] MEDS ORDERED: SUMAtriptan 50 MG TAB PO ONE (22:43)
[2017-09-21] MEDS ORDERED: ONDANSETRON 4 MG/2 ML VIAL IVP PRN (23:00)
[2017-09-21] MEDS ORDERED: ACETAMINOPHEN 325 MG TAB PO PRN (23:00)
[2017-09-21] MEDS ORDERED: SUMAtriptan 50 MG TAB PO PRN (23:03)
[2017-09-21] MEDS ORDERED: diphenhydrAMINE 25 MG CAP PO PRN (23:03)
--- NOTE | 2017-09-22 01:27 | PDGENHP ---
History and Physical - Chief Complaint Left arm pain, anxiety - History of Present Illness Source-patient provides majority of the history appears reliable. EMR was reviewed and case discussed with ED provider. HPI - patient is a 72-year-old female with past medical history significant for PTSD, anxiety disorder, history of falls who was just discharged earlier today around noon to [facility] facility. Patient was admitted for left humerus fracture. Conservative management with sling placement anticipated outpatient follow-up had been planned. [facility] where patient claims that she was ignored for approximately 8 hr did not receive any of her medications on and was having increasing pain anxiety and so she subsequently desire to return to the emergency department and refused to be discharged back to facility. He is not quite clear exactly on if facility was just waiting on prescriptions for narcotics or patient did indeed receive her home medications and just elected to: 1 on but she refuses to return to the facility despite receiving her usual and home medications. Additionally patient reports that she did receive a TB skin test in the right arm she reports she had increased immediate swelling in her forearm. She subsequently developed some itching without any rash home diffusely by her report and is requesting Benadryl. She denies any shortness of breath, tongue swelling or any other signs of anaphylaxis. History Information - Allergies/Home Medication List Allergies/Adverse Reactions: oxycodone Allergy (Verified 06/17/17 13:48) codeine/codeine derivatives Allergy (Mild, Uncoded 06/17/17 13:48) GI upset Home Medications: Aspirin EC [Aspirin EC 81 mg (*)] 243 mg PO DAILY 09/18/17 [Last Taken 09/18/17] Cholecalciferol Vit D3 [Vitamin D3 (*)] 1,000 units PO DAILY 09/18/17 [Last Taken Unknown] Cyanocobalamin [Vitamin B12 (*)] 1,000 mcg PO DAILY 09/18/17 [Last Taken Unknown ] Magnesium Oxide [Magnesium Oxide 400 mg (*)] 400 mg PO DAILY 09/18/17 [Last Taken Unknown] SUMAtriptan [Imitrex 50 MG (*)] 50 mg PO PRN PRN 09/18/17 [Last Taken Unknown] I have personally reviewed and updated: family history, medical history, social history, surgical history - Past Medical History Additional medical history: PTSD, anxiety disorder, history of falls, benzodiazepine dependence with PCP trying to titrate down, humerus fracture on the left, central tremor. - Surgical History Additional surgical history: Total hip arthroplasty - Family History Additional family history: Father with history of prostate cancer. 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 Cor status-DNR DNI. Review of Systems Review of Systems: ROS: 10pt was reviewed & negative except for what was stated in HPI & below Constitutional: Reports: no symptoms. Denies: chills, fever, recent illness EENMT: Reports: no symptoms Cardiac: Reports: no symptoms Respiratory: Reports: no symptoms Gastrointestinal: Reports: no symptoms, other (Patient is complaining that she feels hungry.). Denies: vomitting, abdominal pain, diarrhea Genitourinary: Reports: no symptoms. Denies: dysuria, hematuria Muscolosketal: Reports: joint pain (Left upper arm. It is in a sling.). Denies : neck pain Skin: Reports: other (Itching no rash). Denies: rash Neurological: Reports: anxiety, depressed, emotional problems, headache, numbness (Right arm hand patient reports is improved at site of TB skin testing. ), tingling Hematologic/Lymphatic: Reports: no symptoms Physical Exam Physical Exam: Selected Entries 09/21/17 22:02 Blood Pressure Automatic Method Heart Rate 86 Respiratory 18 Rate O2 Sat (%) 91 L Temperature (C) 37.3 C Blood Pressure 131/81 H Mean Arterial 97 Pressure (MAP) O2 Delivery Room Air Mode Temperature Oral Source Temp Pulse Resp BP Pulse Ox 36.6 C 75 16 137/66 H 92 09/22/17 00:14 09/22/17 00:14 09/22/17 00:14 09/22/17 00:14 09/22/17 00:14 Constitutional: no apparent distress, appears nourished, other (NAD. Adult female is sitting quietly on gurney in a left arm sling.) Eyes: PERRL, anicteric sclera, EOMI, No pale conjunctiva Ears, Nose, Mouth, Throat: moist mucous membranes, no oral mucosal ulcers, other (Mucous membranes appear moist , no nasal discharge), No hearing normal ( Patient with some hearing deficits. She declines to replace her hearing aids stating "I do not want to hear anything") Cardiovascular: regular rate and rhythym, no murmur, rub, or gallop, pulses symmetric bilaterally, No edema Peripheral Pulses: 2+: dorsalis-pedis (R), dorsalis-pedis (L) Respiratory: no respiratory distress, no rales or rhonchi, clear to auscultation Gastrointestinal: normoactive bowel sounds, soft, non-tender abdomen, no palpable masses, No tenderness Genitourinary: no bladder fullness, no bladder tenderness, other (No CVA tenderness.), No workman in urethra Skin: warm, normal color, no rashes or abrasions Musculoskeletal: generalized weakness (Patient with generalized deconditioning.) , other (Left arm is in a sling. Sensation intact to a distal extremity on the left.) Neurologic: AAOx3, sensation intact bilaterally, CN II-XII Intact, No weakness, No facial droop Psychiatric: interacting appropriately, not encephalopathic, thought process linear, anxious, other (Patient home he is in good spirits. She does occasionally laughs inappropriately.), No depressed Lab Data & Imaging Review Lab from 09/18/2017 reviewed. See EMR Visualized and Interpreted imaging results: Yes Interpretation: Improved alignment of the left proximal humeral fracture. Assessment & Plan Assessment: 72-year-old female with a history of anxiety, PTSD, falls on due to tremor and recently discharged for [place] left humerus fracture to [facility] rehab now presents back with complaints of pain, anxiety and refusal to return to facility. 1. Left arm pain Arm pain due to humeral fracture-patient reports that she was not able to get her home medications on at her new facility in so: 1. She has received her [place] which she reports that her pain is improving. She denies any numbness tingling in that extremity. Plan is still for patient to follow up in 2 weeks outpatient. 2. Anxiety and PTSD - patient is in process of being titrated down on the Klonopin but she was insistent with the ED provider that she received all of her own medications including Klonopin in particular. Will leave this as scheduled 0.5 mg p. O. Twice daily. No escalation. 3. Familial tremor - patient does have a outpatient appointment scheduled with [facility] [place]. 4. Migraine headache - sumatriptan p.r.n. Daily. Patient reports this is improving 5. Right arm swelling-patient reports immediate swelling and reaction following injection of the tuberculin skin test. This appears to also be the site where patient's IV was located could also represent a low bit of thrombophlebitis. Warm compresses p.r.n.. As daily concerning the patient reports she feels itchy all over and had requested some Benadryl with improvement in her symptoms. There is no overt rash noted on Shirin could certainly be related to the to brachial in skin testing will need to monitor closely. FEN - patient tolerating oral intake quite well will plan to resume diet. Electrolytes did not require replacement at this time. PPX-SCDs holding anticoagulation anticipating short hospital stay. Mobilize as tolerated. Cor status-is DNR DNI discussed with the patient. She is not have a proxy or MD POA at this point but states she will call few friends. Disposition-patient is refusing to her sternum back to her facility at [facility]. Case Management will be consulted to assist with disposition. Patient has had observation status on the medical floor at this time.
[2017-09-22] MEDS: HYDROCODONE/APAP 5/325 TAB PO PRN ×5 (02:47→22:21)
[2017-09-22] MEDS ORDERED: CEPACOL LOZENGE PO PRN ×2 (04:36→08:59)
[2017-09-22] MEDS ORDERED: POLYETHYLENE GLYCOL 3350 17 GM PKT PO PRN (08:59)
[2017-09-22] MEDS ORDERED: SUMAtriptan 50 MG TAB PO PRN (08:59)
[2017-09-22] MEDS ORDERED: CALCIUM CARBONATE 500 MG CHEWABLE TAB PO PRN (08:59)
[2017-09-22] MEDS ORDERED: CYCLOBENZAPRINE 10 MG TAB PO PRN (08:59)
[2017-09-22] MEDS ORDERED: CYCLOBENZAPRINE 10 MG TAB PO SCH (09:00)
[2017-09-22] MEDS: ASPIRIN EC 81 MG TAB PO SCH (10:07)
[2017-09-22] MEDS: clonazePAM 0.5 MG TAB PO SCH ×2 (10:08→21:12)
[2017-09-22] MEDS: CHOLECALCIFEROL VIT D3 1,000 UNITS TAB PO SCH (10:08)
[2017-09-22] MEDS: CYANO/VITAMIN B12 1000 MCG TAB PO SCH (10:08)
[2017-09-22] MEDS: MAGNESIUM OXIDE 400 MG TAB PO SCH (10:08)
[2017-09-22] MEDS: ENOXAPARIN 40 MG/0.4 ML SYR SC SCH (10:23)
[2017-09-22] MEDS ORDERED: MAGNESIUM HYDROXIDE 30 ML UDCUP PO PRN (10:28)
[2017-09-22] MEDS ORDERED: BISACODYL 10 MG SUPP PR PRN (10:28)
[2017-09-22] MEDS ORDERED: LACTULOSE 20 GM/30 ML UDCUP PO PRN (10:28)
[2017-09-22] MEDS: CAPSAICIN 0.025% CREAM TP SCH ×3 (13:06→21:17)
--- NOTE | 2017-09-22 15:19 | HOSPPROG ---
Hospitalist Progress Note Assessment/Plan: Patient is a 72-year-old female who was discharged yesterday after sustaining a left humerus fracture. She went to [facility] and came back to the emergency room out of frustrations of not being able to get her medications. The patient is declining to go back to any type of rehab at this time * humerus fracture -continue pain management with [place] -to follow up with Dr. Smalls in the outpatient setting * anxiety and associated PTSD -reviewed [place], she filled 60 clonazepam 0.5 mg on 09/15. * tremors -patient states she is on Klonopin for this and in addition it has helped with her anxiety * migraine headaches -resumed home medication *constipation -bowel protocol * right hand phlebitis * plan. Patient is refusing to go to a long-term facility. She also says that she is unable to take care of herself at home. Will arrange for home care PT OT and nursing to check on her when discharged. Patient is stating that she will need a wheelchair to get around but she is unable to get 1 in her home. Case management actively involved. This is a difficult situation. If the patient continues to refuse any type of inpatient rehab will discharge tomorrow with home care. Prior to discharge I will ask for physical therapy and occupational therapy to evaluate her. She is decisional. She will require another midnight stay for further evaluation to be sure that she is as safe as possible when she returns home Subjective: Efren is not c/o pain. Upset with health care. Says the skilled nursing didn't treat her pain. She is not c/o pain here. Objective: Vital Signs Temp Pulse Resp BP Pulse Ox 36.4 C 66 16 102/60 92 09/22/17 07:25 09/22/17 07:25 09/22/17 07:25 09/22/17 07:25 09/22/17 07:25 09/21/17 09/22/17 09/23/17 05:59 05:59 05:59 Intake Total 240 780 Balance 240 780 - Physical Exam Constitutional: no apparent distress, not in pain Eyes: other (wearing sunglasses) Ears, Nose, Mouth, Throat: hard of hearing Respiratory: no respiratory distress Skin: warm, other (left arm in sling) Neurologic: AAOx3 Psychiatric: interacting appropriately, not encephalopathic, thought process linear ICD10 Worksheet Patient Problems: Problems Problem Status Onset Left humeral fracture Acute
--- NOTE | 2017-09-22 16:06 | PDMN ---
Medical Necessity Medical necessity: change to IP; los>2mn for L humerus fx, readmitted day of discharge to SNF r/t inability to obtain medications there and now refusing any SNF; states unable to care for self at home; requires further evaluation and care coordination for safe discharge to home; comorbid anxiety, PTSD, tremors, R hand phlebitis; per order and progress note 09/22/17
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
--- NOTE | 2017-09-22 16:47 | ASMTCMCOM ---
CM Note CM Note Notes: Patient recently discharged to [facility] on 09/21 and admitted again on 09/22. Patient called EMS from [facility] due to feeling unsafe, not receiving pain medications. This CM has spoken to [facility] about concerns. Met with patient and SWITCH INSPECTOR to discuss discharge plan. Patient adamantly refuses to return to any SNF upon discharge. She lives at [facility] and is agreeable to [facility] ([facility]). Despite education and the team's concern about patient's safety at home independently, patient still refuses to go to SNF. Referral was sent to [facility] and confirmed they are able to accept on Friday, 09/24. Patient states she has an appt with Dr. Crane on Friday sometime in the afternoon. Patient attempted to call their office to confirm, states they are closed. Patient is also scheduled to follow-up with [facility] on Friday, 09/29. Therapy to work with patient this afternoon to make further recommendations. CM has left a voicemail for [employer] in [place] to request five free meals ([employer]). Await c/b on Friday to confirm. Transport has already been scheduled with [facility] for 12:00 p.m. on Friday so that patient can return home in time for Via ride to Dr. Crane's office. Discussed case with both SWITCH INSPECTOR and RN. CM will continue to follow. Current D/C Plan: Home with [facility]. Date Signed: 09/22/2017 04:47 PM Electronically Signed By:Norma Ward RN
[2017-09-22] MEDS: METHOCARBAMOL 750 MG TAB PO PRN (17:43)
[2017-09-22] MEDS: SENNOSIDES/DOCUSATE SODIUM TAB PO SCH (21:13)
[2017-09-23] MEDS: HYDROCODONE/APAP 5/325 TAB PO PRN ×3 (03:46→12:55)
[2017-09-23 07:54] VITALS: BP 110/73
[2017-09-23] MEDS: MAGNESIUM OXIDE 400 MG TAB PO SCH (09:15)
[2017-09-23] MEDS: CYANO/VITAMIN B12 1000 MCG TAB PO SCH (09:15)
[2017-09-23] MEDS: SENNOSIDES/DOCUSATE SODIUM TAB PO SCH (09:15)
[2017-09-23] MEDS: CHOLECALCIFEROL VIT D3 1,000 UNITS TAB PO SCH (09:16)
[2017-09-23] MEDS: ASPIRIN EC 81 MG TAB PO SCH (09:16)
[2017-09-23] MEDS: clonazePAM 0.5 MG TAB PO SCH (09:16)
[2017-09-23] MEDS: ENOXAPARIN 40 MG/0.4 ML SYR SC SCH (09:17)
[2017-09-23] MEDS: METHOCARBAMOL 750 MG TAB PO PRN (09:22)
--- NOTE | 2017-09-23 10:17 | HOSPPROG ---
Hospitalist Progress Note Assessment/Plan: Patient is a 72-year-old female who was discharged yesterday after sustaining a left humerus fracture. She went to [facility] and came back to the emergency room out of frustrations of not being able to get her medications. The patient is declining to go back to any type of rehab at this time * humerus fracture -continue pain management with [place] -to follow up with Dr. Smalls in the outpatient setting * anxiety and associated PTSD [place], she filled 60 clonazepam 0.5 mg on 09/15. * tremors -patient states she is on Klonopin for this and in addition it has helped with her anxiety * migraine headaches -resumed home medication *constipation -bowel protocol * right hand phlebitis * plan. offered [facility] a SNF, she has declined. She wanted time to sleep this morning. CM to arrange [facility] and [facility] home care. Subjective: Efren is upset because she didn't get sleep last night, felt her pain wasn't well managed. Objective: Vital Signs Temp Pulse Resp BP Pulse Ox 36.6 C 61 16 110/73 92 09/23/17 07:53 09/23/17 07:53 09/23/17 07:53 09/23/17 07:53 09/23/17 07:53 09/22/17 09/23/17 09/24/17 05:59 05:59 05:59 Intake Total 240 1780 Balance 240 1780 - Physical Exam Constitutional: no apparent distress, appears nourished Eyes: other (sunglasses) Ears, Nose, Mouth, Throat: hard of hearing Respiratory: no respiratory distress Skin: warm Neurologic: AAOx3 Psychiatric: interacting appropriately ICD10 Worksheet Patient Problems: Problems Problem Status Onset Pain in humerus Acute Left humeral fracture Acute
--- NOTE | 2017-09-23 10:38 | PDIAF ---
- Diagnosis Diagnosis: left humerus fx Code Status: Do Not Resuscitate - Medication Management Discharge Medications: Medications to Continue on Transfer Aspirin EC [Aspirin EC 81 mg (*)] 243 mg PO DAILY 09/18/17 [Last Taken 09/21/17] Cholecalciferol Vit D3 [Vitamin D3 (*)] 1,000 units PO DAILY 09/18/17 [Last Taken Unknown] Cyanocobalamin [Vitamin B12 (*)] 1,000 mcg PO DAILY 09/18/17 [Last Taken Unknown ] Magnesium Oxide [Magnesium Oxide 400 mg (*)] 400 mg PO DAILY 09/18/17 [Last Taken Unknown] SUMAtriptan [Imitrex 50 MG (*)] 50 mg PO PRN PRN 09/18/17 [Last Taken Unknown] Benzocaine/Menthol 15/4 [Cepacol Lozenge] 1 ea PO Q1 PRN lozenge 09/21/17 [ Last Taken Unknown] Calcium Carbonate [Tums 500MG (*)] 500 mg PO TID PRN tab.chew 09/21/17 [Last Taken Unknown] Capsaicin 0.025% 1 hardy TP TID cream 09/21/17 [Last Taken Unknown] Cyclobenzaprine [Flexeril 10 MG (*)] 5 mg PO TID PRN tab 09/21/17 [Last Taken Unknown] Polyethylene Glycol 3350 [Miralax 17 gm (*)] 17 gm PO DAILY PRN pkt 09/21/17 [ Last Taken Unknown] clonazePAM [Klonopin (*)] 0.5 mg PO BID tab 09/21/17 [Last Taken 09/21/17 21:00 ] Hydrocodone/APAP 5/325 [Corder 5/325 (*)] 1 - 2 tab PO Q4HRS PRN #21 tab [Last Taken Unknown] Methocarbamol [Robaxin 750 mg (*)] 750 mg PO TID PRN #21 tab 09/23/17 [Last Taken Unknown] Polyethylene Glycol 3350 [Miralax 17 gm (*)] 17 gm PO DAILY PRN pkt 09/23/17 [ Last Taken Unknown] Discharge Medications: Refer to the Discharge Home Medication list for PRN reason. PICC Care - Routine: N/A - Orders Services needed: Home Care, Physical Therapy, Occupational Therapy Home Care Face to Face: I certify that this patient was under my care and that I had the required [id number] encounter meeting the encounter requirements on the discharge day. My findings support the fact that the patient is homebound as defined in Home Care Face to Face Continued: CMS Chapter 7 Medicare Benefits Manual 30.1.1 , The condition of the patient is such that there exists a normal inability to leave home and consequently, leaving home would require a considerable and taxing effort. Additional Instructions: a prescription for pain medications were sent to [facility] here, take a stool softener while on the Vicodin. this medication causes constipation. The pain medication, the Robaxin and the Klonopin can cause significant sedation ; do not take together [employer] will be by to bring you meals wear brace on left arm for next 6 weeks, you will need to get repeat xrays in [address] Smalls office for an appointment. NO lifting with left arm. increase your calcium intake to 1500 mg daily and take a Vitamin D supplement, get outside in the sunshine - Follow Up Care Current Providers and Referrals: VERONIQUE SMILEY [Primary Care Provider] - As per Instructions Saba Smalls MD [Medical Doctor] -
--- NOTE | 2017-09-23 15:10 | GDS ---
[f rep st] DISCHARGE SUMMARY DISCHARGE DIAGNOSES: 1. Humerus fracture. 2. Anxiety with associated posttraumatic stress disorder. 3. Tremors. 4. Migraine headaches. 5. Constipation. 6. Right hand phlebitis. HISTORY: Briefly, the patient is a 72-year-old female who was recently discharged after sustaining a left humerus fracture. She went to [facility], came back to the emergency room out of frustration of not being able to get her medications. She was admitted for further care. During her stay, she was offered to go to another fci facility. She adamantly declined. She felt she was too weak to go home, but did not want any type of fci facility. She wa s discharged back to her home today with [facility]. In addition, [employer] have been or dered for her. HOSPITAL COURSE: 1. Humerus fracture. To follow up with Dr. Smalls in 2 weeks. 2. Anxiety and associated PTSD. She is on clonazepam. 3. Tremor. She is on Klonopin for tremors, and it also has helped her with her anxiety. 4. Migraine headaches. Resumed home medications. 5. Constipation. Bowel protocol. DISCHARGE CONDITION: Stable. VITAL SIGNS: Her blood pressure is 110/73, O2 sats on room air 92%, respiratory rate is 16, pulse is 61, temperature is 36.6 Celsius. MEDICATIONS AT DISCHARGE: Please see the EMR. DISCHARGE INSTRUCTIONS: 1. To get close followup with Dr. Smalls within 2 weeks. 2. Recommended she could reconsider a fci facility if she does not do well at home. It is likely she will return to the emergency room sooner than later. Please see any other information in my discharge summary on 09/21/2017. Greater than 45 minutes discharging and coordinating her care. /[id number]/MODL
--- NOTE | 2017-09-23 16:15 | ASMTCMCOM ---
CM Note CM Note Notes: Pt medically stable for d/c to [facility] with [facility] OT/PT and MOW. Pt continues to decline SNF d/c. MOW to be delivered tomorrow. Medicaid transport scheduled w [facility], today per pt request transport time changed to 1300. Orders sent to [facility] in [employer]. staff to meet pt at dropoff w wc. Date Signed: 09/23/2017 04:15 PM Electronically Signed By:JAYNA Gonzalez
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
== END 2017-09-23 13:48 | disposition home health service (06) | DRG 561 ==
LOC: EDUNIT# → OBSVTOIN 23:00 → F3N 23:50
PROVIDERS: ADMIT Family Medicine; ATTEND Family Medicine
DX: S42.302D Unspecified fracture of shaft of humerus, left arm, subsequent encounter for fracture with routine healing (principal); T80.89XA Other complications following infusion, transfusion and therapeutic injection, initial encounter; M79.89 Other specified soft tissue disorders; R25.1 Tremor, unspecified; F41.9 Anxiety disorder, unspecified; F43.10 Post-traumatic stress disorder, unspecified; G43.909 Migraine, unspecified, not intractable, without status migrainosus; K59.00 Constipation, unspecified; Z66 Do not resuscitate
CPT/HCPCS: 97165-GO; 97535-GO; G0378; G8987-GO-CJ; G8988-GO-CI; J1650

== ENCOUNTER 2017-10-05 12:57 | Emergency (ER) | payer OTHER, MEDICAID ==
[2017-10-05 13:20] VITALS: BP 102/64
--- NOTE | 2017-10-05 14:28 | EDPHY ---
General Time Seen by Provider: 10/05/17 14:22 Narrative: CHIEF COMPLAINT: Refill of pain medication HISTORY OF PRESENT ILLNESS: Patient reports a humerus fracture on the left side on September 21. She was admitted here for pain control and physical therapy evaluation. She was discharged home in a splint with a plan of conservative therapy. No surgical therapy planned. She is here today requesting refills of her pain medication and her muscle relaxant. She says that these were keeping her symptoms tolerable until she ran out last night. She says the muscle relaxers actually much more helpful than the narcotic. She contacted orthopedist to this an appoint with her on Friday. She has no new pain. No numbness, tingling or weakness. She does not want any formal workup, she is only requesting the medications. No other associated complaints or modifying factors ESTABLISHED ORTHOPEDIST: Dr. Saba Smalls REVIEW OF SYSTEMS: Ten systems reviewed and are negative unless otherwise noted in the HPI PAST MEDICAL HISTORY: Recent left humerus fracture PAST SURGICAL HISTORY: No recent surgeries SOCIAL HISTORY: Nonsmoker. Lives independently, locally FAMILY HISTORY: Noncontributory EXAMINATION General Appearance: Alert, no distress Cardiovascular: Radial pulses are symmetric at 2+. Brisk cap refill in the fingers left hand. Neurological: A&O, radial, ulnar and median distributions are intact on the left upper extremity. Interossei strength is 5/5 in the left hand. Skin: Warm and dry, no rash. No petechiae or purpura Extremities: Left humerus is in a coaptation splint that she did not want me to removed. She has no tenderness of the left forearm or hand. Range of motion of the left hand and wrist is intact. Psychiatric: Mood and affect normal MDM: 2:25 p.m. Ongoing pain from a left humeral fracture that is being managed conservatively. She is neuro intact. She is here requesting refills the pain medication and muscle relaxant and no other request. She is in no acute distress. She has an appointment on Friday with orthopedist. She is very polite and I have verified her prescriptions and reviewed her CORPORATE DRIVER Aware report. I will refill these and informed her that further medications will need to come from her primary orthopedist. She is comfortable this plan and discharged home stable condition. SUPERVISION: This patient was independently evaluated without direct involvement of or examination by the attending physician. ED Precautions: Worsening pain. Erythema, edema, cyanosis, pallor, paresthesia or anesthesia. - History Smoking Status: Never smoked - Objective Vital Signs: Initial Vital Signs Temperature (C) 97.5 F 10/05/17 13:16 Heart Rate 60 10/05/17 13:16 Respiratory Rate 17 10/05/17 13:16 Blood Pressure 102/64 10/05/17 13:16 O2 Sat (%) 95 10/05/17 13:16 O2 Delivery Mode Room Air Allergies/Adverse Reactions: oxycodone Allergy (Verified 10/05/17 13:14) codeine/codeine derivatives Allergy (Mild, Uncoded 06/17/17 13:48) GI upset Home Medications: Medication Instructions Recorded Aspirin EC [Aspirin EC 81 mg (*)] 243 mg PO DAILY 09/18/17 Cholecalciferol Vit D3 [Vitamin D3 1,000 units PO DAILY 09/18/17 (*)] Cyanocobalamin [Vitamin B12 (*)] 1,000 mcg PO DAILY 09/18/17 Magnesium Oxide [Magnesium Oxide 400 mg PO DAILY 09/18/17 400 mg (*)] SUMAtriptan [Imitrex 50 MG (*)] 50 mg PO PRN PRN 09/18/17 Benzocaine/Menthol 15/4 [Cepacol 1 ea PO Q1 PRN lozenge 09/21/17 Lozenge] Calcium Carbonate [Tums 500MG (*)] 500 mg PO TID PRN tab.chew 09/21/17 Capsaicin 0.025% 1 hardy TP TID cream 09/21/17 Cyclobenzaprine [Flexeril 10 MG 5 mg PO TID PRN tab 09/21/17 (*)] Polyethylene Glycol 3350 [Miralax 17 gm PO DAILY PRN pkt 09/21/17 17 gm (*)] clonazePAM [Klonopin (*)] 0.5 mg PO BID tab 09/21/17 Hydrocodone/APAP 5/325 [Mchenry 1 - 2 tab PO Q4HRS PRN #21 tab 09/23/17 5/325 (*)] Methocarbamol [Robaxin 750 mg (*)] 750 mg PO TID PRN #21 tab 09/23/17 Polyethylene Glycol 3350 [Miralax 17 gm PO DAILY PRN pkt 09/23/17 17 gm (*)] Hydrocodone/APAP 5/325 [Mchenry 1 - 2 tab PO Q4H PRN #13 tab 10/05/17 5/325 (*)] Methocarbamol [Robaxin 750 mg (*)] 750 mg PO TID #21 tab 10/05/17 Vicodin 5-300 mg Tablet 10/05/17 Departure - Departure Disposition: Home, Routine, Self-Care Clinical Impression: Closed left humeral fracture Qualifiers: Encounter type: initial encounter Humerus Location: proximal Fracture morphology: unspecified fracture morphology Qualified Code(s): S42.202A - Unspecified fracture of upper end of left humerus, initial encounter for closed fracture Extremity pain Qualifiers: Extremity pain location: upper extremity Laterality: left Qualified Code(s): M79.602 - Pain in left arm Condition: Good Instructions: Arm Fracture in Adults (ED) Additional Instructions: 1. I have refilled the 2 previous prescriptions. Please follow up with Orthopedics for definitive care and further medication 2. Please exercise caution combining these 2 medications as discussed Referrals: VERONIQUE SMILEY [Primary Care Provider] - As per Instructions Saba Smalls MD [Medical Doctor] - As per Instructions Prescriptions: Hydrocodone/APAP 5/325 [Mchenry 5/325 (*)] 1 - 2 tab PO Q4H PRN #13 tab PRN Reason: Pain, Moderate Methocarbamol [Robaxin 750 mg (*)] 750 mg PO TID #21 tab
== END 2017-10-05 14:46 | disposition home or self-care (01) ==
DX: S42.202D Unspecified fracture of upper end of left humerus, subsequent encounter for fracture with routine healing (principal); Z79.82 Long term (current) use of aspirin; X58.XXXD Exposure to other specified factors, subsequent encounter

== ENCOUNTER 2017-10-19 12:08 | Emergency (ER) | payer OTHER, MEDICAID ==
--- NOTE | 2017-10-19 13:05 | EDPHY ---
H & P Smoking Status: Never smoked Time Seen by Provider: 10/19/17 12:31 HPI/ROS: CHIEF COMPLAINT: Depression, suicidal ideation HISTORY OF PRESENT ILLNESS: 72-year-old female presents to the emergency department feeling depressed and suicidal. Patient states that she has ongoing history of PTSD. She also has a history of anxiety and they have been weaning her off of her Klonopin. She is taking 1.5 mg daily. She states that she recently broke her left humerus and is now feeling "hopeless". She feels suicidal and her plan is to hang herself with a belt. She denies chest pain or difficulty breathing. Denies abdominal pain. Denies neck or back pain. Denies paresthesias in her upper lower extremities. REVIEW OF SYSTEMS: Constitutional: No fever, no chills. Eyes: No double or blurry vision. ENT: No sore throat. Respiratory: No cough, no shortness of breath. Cardiac: No chest pain. Gastrointestinal: No abdominal pain, vomiting or diarrhea. Genitourinary: No dysuria. Musculoskeletal: No neck or back pain. Skin: No rashes. Neurological: No headache. (Yessenia Murray) Past Medical/Surgical History: PTSD, depression, anxiety, "movement disorder", migraine headaches (Trevor, Yessenia M) Social History: Single and lives alone (Yessenia Murray) Physical Exam: General Appearance: Alert, tearful. Friend at bedside. Eyes: Pupils equal and round. Extraocular motions are all intact. ENT: Mouth: Mucous membranes moist. Respiratory: No wheezing, rhonchi, or rales, lungs are clear to auscultation. Cardiovascular: Regular rate and rhythm. Gastrointestinal: Abdomen is soft and nontender, no masses, no rebound or guarding, bowel sounds normal. Neurological: Alert and oriented x 3, cranial nerves II through XII grossly intact Skin: Warm and dry, no rashes. Musculoskeletal: Nontender to palpate along the cervical, thoracic or lumbar spine. Neck is supple. Extremities: Left upper extremity in clamshell splint and sling. Strong radial pulse at the left wrist. Full range of motion of her right upper extremity and lower extremities bilaterally. Psychiatric: Patient is oriented X 3, there is no agitation. (Yessenia Murray M) Constitutional: Initial Vital Signs Temperature (C) 36.4 C 10/19/17 12:15 Heart Rate 85 10/19/17 12:15 Respiratory Rate 18 10/19/17 12:15 Blood Pressure 154/104 H 10/19/17 12:15 O2 Sat (%) 94 10/19/17 12:15 O2 Delivery Mode Room Air Allergies/Adverse Reactions: oxycodone Allergy (Unknown, Verified 10/19/17 12:25) "sensitive" codeine/codeine derivatives Allergy (Mild, Uncoded 06/17/17 13:48) GI upset Home Medications: Medication Instructions Recorded Aspirin EC [Aspirin EC 81 mg (*)] 243 mg PO DAILY 09/18/17 SUMAtriptan [Imitrex 50 MG (*)] 50 mg PO PRN PRN 09/18/17 clonazePAM [Klonopin (*)] 0.5 mg PO BID tab 09/21/17 Methocarbamol [Robaxin 750 mg (*)] 750 mg PO TID #21 tab 10/05/17 Vicodin 5-300 mg Tablet 10/05/17 Medical Decision Making ED Course/Re-evaluation: 72-year-old female presents to the emergency department voluntarily feeling suicidal and depressed. She has a suicidal plan of hang herself with a belt. The friend at bedside is concerned because she has noted that she has been getting her Will in order and this is not like her. The patient has been medically cleared and is awaiting mental health evaluation. The patient was placed on an M1 hold. (Yessenia Murray) 5:25 p.m.: Patient requesting Klonopin for acute anxiety. She has a history of benzodiazepine usage, specifically Klonopin, for chronic anxiety. She will be given oral Klonopin at this time (Magalie Crawley) Patient is given Tylenol for her arm pain. Fracture was September 21. Patient has been evaluated by mental health and accepted for admission at [facility]. (David Márquez) Differential Diagnosis: Depression including functional and major depression, situational depression, medication side effect, drugs and alcohol abuse. (Yessenia Murray) Care Turn Over: Care will be turned over to Dr. David Márquez at 5:15 p.m., shift change. (Yessenia Murray) - Data Points Laboratory Results: Laboratory Results 10/19/17 13:00 10/19/17 13:00 10/19/17 10/19/17 10/19/17 13:49 13:00 13:00 WBC 8.11 10^3/uL 10^3/uL (3.80-9.50) RBC 5.48 10^6/uL H 10^6/uL (4.18-5.33) Hgb 15.2 g/dL g/dL (12.6-16.3) Hct 48.0 % H % (38.0-47.0) MCV 87.6 fL fL (81.5-99.8) MCH 27.7 pg L pg (27.9-34.1) MCHC 31.7 g/dL L g/dL (32.4-36.7) RDW 14.0 % % (11.5-15.2) Plt Count 380 10^3/uL 10^3/uL (150-400) MPV 9.6 fL fL (8.7-11.7) Neut % (Auto) 65.4 % % (39.3-74.2) Lymph % (Auto) 22.9 % % (15.0-45.0) [place] % (Auto) 7.3 % % (4.5-13.0) Eos % (Auto) 3.1 % % (0.6-7.6) Baso % (Auto) 1.1 % % (0.3-1.7) Nucleat RBC Rel Count 0.0 % % (0.0-0.2) Absolute Neuts (auto) 5.30 10^3/uL 10^3/uL (1.70-6.50) Absolute Lymphs (auto) 1.86 10^3/uL 10^3/uL (1.00-3.00) Absolute Monos (auto) 0.59 10^3/uL 10^3/uL (0.30-0.80) Absolute Eos (auto) 0.25 10^3/uL 10^3/uL (0.03-0.40) Absolute Basos (auto) 0.09 10^3/uL 10^3/uL (0.02-0.10) Absolute Nucleated RBC 0.00 10^3/uL 10^3/uL (0-0.01) Immature Gran % 0.2 % % (0.0-1.1) Immature Gran # 0.02 10^3/uL 10^3/uL (0.00-0.10) Sodium 143 mEq/L mEq/L (135-145) Potassium 4.1 mEq/L mEq/L (3.3-5.0) Chloride 103 mEq/L mEq/L (97-110) Carbon Dioxide 25 mEq/l mEq/l (22-31) Anion Gap 15 mEq/L mEq/L (8-16) BUN 19 mg/dL mg/dL (7-23) Creatinine 0.8 mg/dL mg/dL (0.6-1.0) Estimated GFR > 60 Glucose 90 mg/dL mg/dL (70-100) Calcium 9.7 mg/dL mg/dL (8.5-10.4) TSH 1.490 uIU/mL uIU/mL (0.465-4.680) Urine Opiates Screen NEGATIVE (NEGATIVE) Urine Barbiturates NEGATIVE (NEGATIVE) Ur Phencyclidine Scrn NEGATIVE (NEGATIVE) Ur Amphetamine Screen NEGATIVE (NEGATIVE) U Benzodiazepines Scrn NEGATIVE (NEGATIVE) Urine Cocaine Screen NEGATIVE (NEGATIVE) U Marijuana (THC) Screen NEGATIVE (NEGATIVE) Ethyl Alcohol < 10 mg/dL mg/dL (0-10) Medications Given: Discontinued Medications Acetaminophen (Tylenol) 1,000 mg PO EDNOW ONE Stop: 10/19/17 19:37 Last Admin: 10/19/17 19:50 Dose: 1,000 mg Clonazepam (Klonopin) 1 mg PO EDNOW ONE Stop: 10/19/17 17:26 Last Admin: 10/19/17 17:38 Dose: 1 mg Sumatriptan Succinate (Imitrex) 50 mg PO ONCE ONE Stop: 10/19/17 13:09 Last Admin: 10/19/17 13:46 Dose: 50 mg Departure - Departure Disposition: Other Psych, Not Angélica Clinical Impression: Suicidal ideation Depression Qualifiers: Depression Type: unspecified Qualified Code(s): F32.9 - Major depressive disorder, single episode, unspecified Condition: Fair Referrals: Jesisca Crane MD [Primary Care Provider] - As per Instructions
[2017-10-19] MEDS ORDERED: SUMAtriptan 50 MG TAB PO ONE (13:08)
[2017-10-19 13:16] LABS: PLATELET COUNT 380 10^3/uL (150-400)
[2017-10-19] MEDS ORDERED: clonazePAM 1 MG TAB PO ONE (17:25)
[2017-10-19] MEDS ORDERED: ACETAMINOPHEN 500 MG TAB PO ONE (19:36)
[2017-10-19 20:24] VITALS: BP 113/65
== END 2017-10-19 21:27 ==
PROC: GZ11ZZZ Psychological Tests, Personality and Behavioral (ICD-10-PCS; principal; 2017-10-19)
DX: R45.851 Suicidal ideations (principal); F32.9 Major depressive disorder, single episode, unspecified; Z79.82 Long term (current) use of aspirin
CPT/HCPCS: 80305; G0480